=== PATIENT | male | born 1945 | race Caucasian/White ===

== ENCOUNTER 2018-02-19 10:46 | Emergency (ER) | payer OTHER ==
[2018-02-19] MEDS: KETOROLAC 30 MG INJ IM (13:08)
== END 2018-02-19 13:26 | disposition home or self-care (01) ==
LOC: FTE 10:46
DX: N50.811 Right testicular pain (principal); N50.812 Left testicular pain; I10 Essential (primary) hypertension
CPT/HCPCS: 96372; 99284-25